=== PATIENT | male | born 1970 | race Caucasian/White ===

== ENCOUNTER 2020-09-24 12:59 | Outpatient (CLI) | payer OTHER, SELFPAY ==
--- NOTE | 2020-09-24 13:12 | XRR_ITS ---
PROCEDURE INFORMATION: Exam: XR Right Shoulder Exam date and time: 09/24/2020 1:23 PM Age: 50 years old Clinical indication: Pain; Shoulder; Bilateral; Additional info: R shoulder pain TECHNIQUE: Imaging protocol: XR Right shoulder. Views: 2 or more views. COMPARISON: No relevant prior studies available. FINDINGS: Bones/joints: Negative for acute bony abnormality. Soft tissues: Normal. XR/XR shoulder RT min 2V* [id number] IMPRESSION: No acute findings.
--- NOTE | 2020-09-24 13:12 | XRR_ITS ---
PROCEDURE INFORMATION: Exam: XR Left Shoulder Exam date and time: 09/24/2020 1:23 PM Age: 50 years old Clinical indication: Pain; Shoulder; Bilateral; Additional info: Left shoulder pain TECHNIQUE: Imaging protocol: XR Left shoulder. Views: 2 or more views. COMPARISON: No relevant prior studies available. FINDINGS: Bones/joints: Negative for acute bony abnormality. Soft tissues: Normal. XR/XR shoulder LT min 2V* [id number] IMPRESSION: No acute findings.
== END 2020-09-24 13:00 | disposition home or self-care (01) ==
PROVIDERS: PCP Nurse Practitioner Family; Visit Provider Nurse Practitioner Family
DX: M25.512 Pain in left shoulder (principal); M25.511 Pain in right shoulder
CPT/HCPCS: 73030

== ENCOUNTER → 2022-01-30 07:54 | Outpatient (BNVA) | payer OTHER, SELFPAY | PROVIDERS: PCP Nurse Practitioner Family; Referring Provider Family Medicine; Visit Provider Student in an Organized Health Care Education/Training Program | DX: M79.641 Pain in right hand (principal) | CPT/HCPCS: 73130 ==

== ENCOUNTER → 2023-02-05 09:39 | Outpatient (BNVA) | payer OTHER, SELFPAY | PROVIDERS: PCP Nurse Practitioner Family; Visit Provider Student in an Organized Health Care Education/Training Program | DX: M65.331 Trigger finger, right middle finger | CPT/HCPCS: 73130 ==

== ENCOUNTER 2023-02-18 08:16 | Day surgery (SDC) | payer OTHER, SELFPAY ==
[2023-02-17 12:02] VITALS: BMI 32.5
[2023-02-18 08:31] VITALS: BP 150/94; PULSE 57; RESP 18; TEMP 36.3; O2SAT 96; BMI 32.5
[2023-02-18] MEDS: sodium chloride 0.9% 1,000 ML 30 ML IV (08:49)
--- NOTE | 2023-02-18 08:57 | W.PM.OPSUD ---
Surgery/Procedure H&P Update DATE OF PROCEDURE: February 18, 2023 DATE H&P PERFORMED: 02/05/23 CHANGES TO PREVIOUS DOCUMENTATION: None. No change in HPI visit from 02/05/2023. Patient has a right middle finger trigger is failed conservative treatment elects proceed with surgical intervention. Understands risk benefits complication alternatives surgery elects to proceed all questions answered. PREOP DIAGNOSIS: Right middle finger trigger PRIMARY INDICATION FOR PROCEDURE: Right middle finger trigger PLANNED PROCEDURE: Operation Date: 02/18/23 10:10 Proposed Procedures p RIGHT MIDDLE TRIGGER FINGER RELEASE [id number],M65.21(Not Applicable) - Rashad Brand DO
[2023-02-18] MEDS: acetaminophen 1,000 MG/100 ML PIGGYBACK 400 MG IV (08:58)
[2023-02-18] MEDS: ketorolac 30 mg/mL INJ IVP (08:59)
--- NOTE | 2023-02-18 09:13 | ANES.PREANE2 ---
Pre-Anesthetic Assessment Height/Weight: Height 1.91 m Weight 117.934 kg Temp Pulse Resp BP Pulse Ox O2 Del Method 97.4 F L 57 L 18 150/94 96 Room Air 02/18/23 08:31 02/18/23 08:31 02/18/23 08:31 02/18/23 08:31 02/18/23 08:31 02/18/23 08:31 Preop Diagnosis: Right middle finger trigger Operation Date: 02/18/23 10:10 Proposed Procedures p RIGHT MIDDLE TRIGGER FINGER RELEASE [id number],M65.21(Not Applicable) - Rashad Brand DO Familial anesthetic complications: Gas and belching after an ankle surgery Was Beta Charlie taken within 24 hours: N/A Was Clonidine taken within 24 hours: N/A Last intake: Intake Last Liquid Date 02/18/23 Last Liquid Time 06:00 Last Solid Date 02/17/23 Last Solid Time 21:00 Social No alcohol and No tobacco Exam alert, oriented x 3, clear to auscultation bilaterally and regular rate & rhythm Airway Mallampati: Class III Dentition: other (bridge) CV/HEM Hypertension Anesthetic Plan ASA status: 2 Anesthesia: MAC Risk of > 500 ml blood loss (7ml/kg in children): No Medications/Allergies Home Medications Medication Instructions Recorded Confirmed Last Taken Type bupropion HCl 100 mg tablet 100 mg PO DAILY 01/30/22 02/17/23 02/18/23 History gabapentin 100 mg capsule 300 mg PO BID 01/30/22 02/17/23 02/18/23 History nebivolol 10 mg tablet (Bystolic) 10 mg PO DAILY 01/30/22 02/17/23 02/18/23 History testosterone cypionate 200 mg/mL 200 mg SUBCUT 02/17/23 02/18/23 History intramuscular oil ondansetron 4 mg disintegrating 4 mg PO Q8H PRN nausea and 02/18/23 Unknown Rx tablet vomiting 3 days #9 tabs tramadol 50 mg tablet 50 mg PO Q6H PRN pain #20 tabs 02/18/23 Unknown Rx Allergies Allergy/AdvReac Type Severity Reaction Status Date / Time penicillin G Allergy unknown Verified 02/05/23 09:33 Current Medications Generic Name Dose Route Start Last Admin Trade Name Freq PRN Reason Stop Dose Admin Sodium Chloride 1,000 mls @ 30 mls/hr 02/18/23 08:30 02/18/23 08:49 Sodium Chloride 0.9% IV 02/19/23 08:29 30 mls/hr .Q24H SAFIA Administration PFSH Anesthesia Medical History (Updated 02/17/23 @ 12:08 by Danette Chisholm RN) Bilateral carpal tunnel syndrome Trigger finger, right middle finger Trigger middle finger of left hand Trigger thumb of right hand Social History (Updated 02/05/23 @ 09:34 by Adalgisa Barber LPN) Smoking and tobacco status: former smoker Alcohol intake: current Alcohol intake frequency: holidays/special occasions only Data Anesthesia Cardiac Studies: No Data to Display
[2023-02-18] MEDS: ceFAZolin 2,000 MG in sodium chloride 0.9% (plus) 50 ML 100 MG IV (09:27)
[2023-02-18] MEDS: BUPivacaine 0.5% INJ 10 mL INJECTION (09:54)
[2023-02-18] MEDS: ROPivacaine 0.5% SDV 30 mL 150 MG INJECTION (09:54)
--- NOTE | 2023-02-18 10:04 | PM.OP2 ---
Brief Operative Note Date of procedure: 02/18/23 Pre-op diagnosis: Right middle finger trigger Post-op diagnosis: same (With extensive flexor tendon tenosynovitis ) Procedure Done: Right middle finger trigger release Right middle finger flexor tendon extensive tenosynovectomy/tenolysis Surgeon: Rashad Brand Estimated blood loss (mL): 2 Complications: None Post-op Plan: Patient taken to PACU in stable condition recovering well pain controlled. Will receive appropriate discharge instructions as well as pain medication postoperatively. Condition: stable Disposition: same day Coding Level of Care Code Acute Code for Rose Blackwood
--- NOTE | 2023-02-18 10:06 | PM.PACU ---
PACU note Narrative: Patient taken to PACU in stable condition recovering well pain controlled. Patient receive appropriate discharge directions as well as pain medication postoperatively. Dressings on in place the right hand hands warm well-perfused brisk capillary refill less than 2 seconds patient able to wiggle fingers. Decree sensation to middle finger secondary to local anesthesia. Exam: awake Disposition: discharged
--- NOTE | 2023-02-18 10:07 | PM.OP ---
Operative Report Date of procedure: February 18, 2023 Surgeon: Rashad Brand DO Procedure: Post-op diagnosis: Same Procedure done: Right middle finger?trigger?release Right middle finger flexor tendon Tenosynovectomy/tenolysis Surgeon: Rashad Brand DO Estimated blood loss: 2cc Tourniquet time 11mins Complications: None Condition: stable Disposition: same day Brief History: Patient's been seen and worked up in the outpatient setting and findings consistent with preoperative diagnosis of right middle finger?trigger.? He is failed conservative treatment.? Continues to have mechanical locking and catching.? Severe pain as well.? We talked about treatment options nonoperative versus operative intervention.? ?Patient understands the risk benefits complication alternatives of surgical nonsurgical treatment options.? Understanding his risks with surgery he elects proceed with surgical intervention.? Consent obtained in the office.? Here today to proceed with surgical intervention.? All questions answered. Procedure: Patient was seen and evaluated in the preoperative holding area.? Consent was reviewed and signed with patient.? Seen evaluated by Anesthesia Department.? Once cleared for surgery was brought back to the operative suite.? Kept On [facility] and in supine position. Patient's right arm was then placed to the armboard.? A nonsterile tourniquet applied to the right upper arm.? Patient's right upper extremity was then prepped and draped in standard orthopedic fashion.? Final timeout performed.? Patient received appropriate preoperative antibiotics. Esmarch tourniquet was used exsanguinate the right upper extremity tourniquet insufflated to 250 mmHg. Under sterile aseptic technique local digital block was performed to the right middle finger.? Once appropriately anesthetized a standard oblique incision was made centering over the A1 jose following patient's flexor crease.? Sharp scalpel incision was made only through skin and then switched to Littler dissection scissors and spread longitudinally directly over the flexor tendon sheath.? I then mobilized both radially and ulnarly and Kasdan retractors were used and placed by my real estate legal assistant to protect neurovascular bundle.? Next I visualized the A1 jose and this was incised with a scalpel.? I then switched to dissection scissors and released the A1 jose both proximally as well as distally to its entirety.? Significant tendon sheath fluid was noted consistent with inflammation.? Patient had extensive tenosynovitis throughout the entire tendon sheath with significant fraying of tendon no complete tear noted. I then utilized dissection scissors and pickups to perform an extensive Tenosynovectomy of the FDS and FDP tendons. At this point I utilized a rag nail and pulled the tendons FDS and FDP out of the incision and no?triggering was noted.? I then had anesthesia wake up the patient and patient was able to actively flex and extend and visualize his hand and try to make his finger trigger but there was no evidence of recurrent triggering. Patient had smooth range of motion of flexion extension and significant improvement in his finger range of motion.? This point thorough irrigation was performed.? Tourniquet deflated hemostasis satisfactory with bipolar.? I then subsequently closed the incision with interrupted nylon suture.? Xeroform 4 x 4's, Kerlix and an Corky wrap was applied for a bulky soft dressing.? Patient was then subsequently awakened from anesthesia and taken to PACU in stable condition tolerated procedure without issues. Disposition: Patient taken back in stable condition recovering well.? Patient will receive appropriate discharge instruction as well as pain medication postoperatively.? Patient to follow-up with me in the office in 2 weeks for repeat evaluation and incision check.? Patient understands that any questions or concerns and contact the office.? All questions answered.
[2023-02-18 10:16] VITALS: BP 123/77; PULSE 58; RESP 14; TEMP 36.1; O2SAT 94
[2023-02-18 10:20] VITALS: BP 134/79; PULSE 50; RESP 14; O2SAT 95
[2023-02-18 10:25] VITALS: BP 106/86; PULSE 50; RESP 14; TEMP 36.2; O2SAT 96
[2023-02-18 10:29] VITALS: BP 119/81; PULSE 51; RESP 16; TEMP 36.6; O2SAT 97
[2023-02-18 10:50] VITALS: BP 126/92; PULSE 56; RESP 16; TEMP 36.6; O2SAT 97
--- NOTE | 2023-02-18 11:00 | ANE.PACU2 ---
Inpatient post-anesthesia follow up: Airway intact: Yes Vital signs: Temperature 97.8 F Pulse Rate 56 Respiratory Rate 16 Blood Pressure 126/92 Pulse Oximetry 97 Oxygen Delivery Me thod Room Air Oxygen Flow Rate Fraction of Inspir ed Oxygen Hydration adequate: Yes Nausea and vomiting: No Pain level: 1 Mental status: Baseline
== END 2023-02-18 11:01 | disposition home or self-care (01) ==
PROVIDERS: PCP Family Medicine; Visit Provider Student in an Organized Health Care Education/Training Program
PROC: (CPT 26055; principal; 2023-02-18 10:00)
DX: M65.331 Trigger finger, right middle finger (principal); M65.841 Other synovitis and tenosynovitis, right hand; I10 Essential (primary) hypertension; Z87.891 Personal history of nicotine dependence
CPT/HCPCS: 26055; 26145; J0131; J0690; J1885; J2704; J2795; J3010; J3490; J7030

== ENCOUNTER 2023-03-08 12:11 | Outpatient (RCR) | payer OTHER, SELFPAY | END 2023-03-13 23:59 | disposition home or self-care (01) | LOC: SOT 12:11 | PROVIDERS: PCP Student in an Organized Health Care Education/Training Program; Visit Provider Student in an Organized Health Care Education/Training Program | DX: M65.331 Trigger finger, right middle finger (principal) | CPT/HCPCS: 97110; 97165; 97530 ==

== ENCOUNTER 2023-03-11 09:28 | Observation (INO) | payer OTHER, SELFPAY ==
--- NOTE | 2023-03-11 09:39 | PM.HP ---
Providers/Chief Complaint Admitting Physician: Rashad Brand DO Primary Care Provider: Rashad Brand DO Chief Complaint: middle finger infection History of Present Illness Prateek Fong is a 52 year old male who underwent a right middle finger trigger release on 02/18/2023. Patient was followed up in our clinic and 03/04/2023 and had sutures removed at that point in time no signs of infection mild areas of wound dehiscence that would likely expected to granulate in a week later patient states he noted increasing warmth and pain with finger range of motion. He was started up on Keflex and sent to our OT hand therapy specialist to work on wound management as well as edema control. He has had persistent pain in drainage at incision site and states that does not seem to be improving he was started on Bactrim by his primary care provider and recommended for a follow-up he was seen in my office this morning on 03/11/2023. At this point in time he does not have tenderness along the flexor tendon sheath he does have mild swelling throughout the hand focal erythema and mild purulent drainage at the incision site he has mild discomfort with passive extension he is able to mildly flex and extend his finger. At this point in time concern for postoperative infection and its not responding to conservative treatment as result recommended direct admit. He will be admitted started on empiric IV antibiotics with hospitalist on board to help assist us in medical management. Obtain preoperative labs. And plan for n.p.o. at midnight with plan for OR tomorrow for I&D of right middle finger. Patient understands agrees with current plan. Questions answered. Patient denies any fevers chills chest pain shortness of breath nausea vomiting Review of Systems General: Reports: 10 or more systems reviewed and unremarkable except in HPI and below Medications/Allergies Home Medications Medication Instructions Recorded Confirmed Last Taken Type bupropion HCl 100 mg tablet 150 mg PO BEDTIME 01/30/22 03/11/23 03/11/23 08:00 History gabapentin 100 mg capsule 400 mg PO BID 01/30/22 03/11/23 03/11/23 08:00 History nebivolol 10 mg tablet (Bystolic) 10 mg PO DAILY 01/30/22 03/11/23 03/11/23 08:00 History testosterone cypionate 200 mg/mL 200 mg SUBCUT 02/17/23 03/11/23 02/18/23 History intramuscular oil tramadol 50 mg tablet 50 mg PO Q6H PRN pain #20 tabs 02/18/23 03/11/23 Unknown Rx melatonin 10 mg PO BEDTIME 03/11/23 03/11/23 03/10/23 22:00 History sulfamethoxazole 800 1 tab PO BID 03/11/23 03/11/23 03/11/23 01:00 History mg-trimethoprim 160 mg tablet Allergies Allergy/AdvReac Type Severity Reaction Status Date / Time No Known Allergies Allergy Unverified 03/11/23 08:27 PFSH Acute PFSH: Medical History (Updated 03/11/23 @ 17:58 by Rashad Brand DO) Bilateral carpal tunnel syndrome Trigger finger, right middle finger Trigger middle finger of left hand Trigger thumb of right hand Social History Smoking and tobacco status: former smoker Alcohol intake: current Alcohol intake frequency: holidays/special occasions only Physical Exam Narrative: Orthopedic examination: Examination of the right hand demonstrates postoperative incision has subtle dehiscence noted with mild mucopurulent drainage. Tenderness over the A1 jose no tenderness along the flexor tendon sheath he has mild swelling throughout the incision site and into the base of the middle finger patient is able to flex his fingers there is no evidence of deep hand abscess or tenderness over the carpal tunnel thenar eminence or hypothenar eminence. Decreased finger range of motion pain with passive extension. Fingertips warm well-perfused brisk cap refill less than 2 seconds. Data 03/11/23 09:55 03/11/23 09:55 A&P Assessment and plan (1) Postoperative infection: (2) Trigger finger, right middle finger: Plan N.p.o. at midnight Regular diet today Obtain labs CRP and ESR elevated, normal white count Internal medicine consulted for medical management assistance Volar splint applied with dry dressing Elevation in [place] sling Empiric IV antibiotics and Toradol Plan for OR tomorrow for right middle finger irrigation and debridement. Patient understands the ins and outs procedure risk benefits complication alternatives surgery through shared decision-making elects proceed with surgical intervention all questions answered. Attestations Medical Necessity Statement*: Right middle finger postoperative infection Coding Level of Care Code Acute Code for Chg Fwd Diagnoses Postoperative infection T81.40XA Trigger finger, right middle finger M65.331
[2023-03-11 10:24] LABS: Erythrocyte Sedimentation Rate 37 mm/hr (0-10)
[2023-03-11 10:26] LABS: C Reactive Protein 30.5 mg/L (0.0-4.9)
[2023-03-11] MEDS: piperacillin-tazobactam 3.375 GM in sodium chloride 0.9% (plus) 50 ML IV ×2 (10:39→18:10)
[2023-03-11] MEDS: sodium chloride 0.9% 1,000 ML 80 ML IV ×2 (10:39→22:45)
[2023-03-11] MEDS: vancomycin 1,000 MG in sodium chloride 0.9% 250 ML 250 MG IV ×2 (10:40→22:45)
[2023-03-11] MEDS: acetaminophen 500 mg Tablet 1000 MG PO ×2 (10:40→18:09)
[2023-03-11 10:57] VITALS: BP 140/88; PULSE 79; RESP 16; TEMP 36.7; O2SAT 98
[2023-03-11] MEDS: ketorolac 30 mg/mL INJ IVP (11:23)
--- NOTE | 2023-03-11 13:41 | PC.OT ---
OT EVALUATION ORDERS RECEIVED. PER DISCUSSION WITH PATIENT NO P.T. REQUIRED HE IS INDEPENDENT WITH ALL MOBILITY AND TRANSFERS. PATIENT REPORTS HE HAS ATTEMPTED TO PERFORM HAND EXERCISES SHOWN BY CHT BUT HIS HAND HAS BEEN TOO SWOLLEN. HE IS GIVEN ONE HANDED ADL TECHNIQUES HANDOUT. NO FURTHER SKILLED OT REQUIRED AT THIS TIME. WILL AWAIT NEW ORDERS IF NEEDED AFTER SURGERY TOMORROW.
[2023-03-11 14:04] LABS: Basophils # 0.1 10^3/uL (0.0-0.1); Basophils % 0.6 %; Eosinophils # 0.2 10^3/uL (0.0-0.8); Eosinophils % 1.9 %; Lymphocytes # 1.7 10^3/uL (0.8-4.8); Lymphocytes % 20.7 %; Mean Corpuscular HGB Conc 32.8 g/dL (30-55); Mean Corpuscular Hemoglobin 29.7 pg (27-33); Mean Corpuscular Volume 90.6 fl (82-101); Mean Platelet Volume 9.4 fL (7.4-10.4); Monocytes # 0.8 10^3/uL (0.2-0.9); Monocytes % 10.1 %; Neutrophils # 5.42 10^3/uL (1.8-7.7); Neutrophils % 65.5 %; Nucleated Red Blood Cells % 0 %; Platelet Count 300 10^3/cmm (157-399); Red Blood Count 5.52 10^6/uL (3.85-5.65); Red Cell Distribution Width 13.2 % (12.1-15.1); White Blood Count 8.28 10^3/uL (3.29-11.43)
[2023-03-11 14:25] LABS: Anion Gap 18.4 (5-19); Blood Urea Nitrogen 13 mg/dL (6-20); Calcium 9.6 mg/dL (8.5-10.5); Carbon Dioxide 23 mmol/L (22-29); Chloride 100 mmol/L (98-107); Glomerular Filtration Rate 52.8 mL/min (90-130); Glucose 125 mg/dL (65-115); Osmolality Calculated 286 mOsm/kg (285-295); Potassium 4.4 mmol/L (3.5-5.1); Sodium 137 mmol/L (136-145)
[2023-03-11 15:58] VITALS: BP 145/85; PULSE 58; RESP 17; O2SAT 92
[2023-03-11] MEDS: calcium carb-vit d 600mg/400unit 1 Tablet 1 EACH PO (18:09)
--- NOTE | 2023-03-11 18:18 | PM.CONSULT ---
Providers/Reason For Consult Consulting Physician/Specialty*: Internal Medicine Reason for Consult*: assist with antibiotics and medical care Requesting Physician: Dr. Brand Attending Physician: Rashad Brand DO Primary Care Provider: Rashad Brand DO History of Present Illness History of Present Illness Prateek Fong is a 52 year old male had tendon release for trigger finger on his right third digit exactly 3 weeks ago. When he postop 2 weeks the sutures were removed and some clear pus was released. Later patient experienced fever chills and sweats the incision was opening and slight material was draining. His fingers started to swell. He had difficulty getting into the office. Nelson was called in for the patient on Wednesday. However, the wound was becoming worse. He saw his primary care physician yesterday his antibiotic to Bactrim and performed a culture. It is reported by the patient that the swab tip went into the wound completely at that point patient was able to make phone calls and be seen first thing this morning. Dr. Brand saw him in his office and determined patient would need a wound washout and IV antibiotics for a couple of days. Review of Systems Const: Reports: fever(s), chills and diaphoresis Eyes: Denies: change in vision ENMT: Denies: throat pain or nasal congestion Card: Denies: chest pain or palpitations Resp: Denies: dyspnea or productive cough GI: Denies: abdominal pain, nausea, vomiting or change in stool character : Denies: difficulty urinating or dysuria Musc: Reports: other (finger and hand pain); Denies: back pain Skin/Breast: Denies: rash or lesions Neuro: Denies: headache(s) or dizziness Psych: Denies: anxiety or depression Nir/Lymph: Denies: easy bruising or easy bleeding Medications/Allergies Home Medications Medication Instructions Recorded Confirmed Last Taken Type bupropion HCl 100 mg tablet 150 mg PO BEDTIME 01/30/22 03/11/23 03/11/23 08:00 History gabapentin 100 mg capsule 400 mg PO BID 01/30/22 03/11/23 03/11/23 08:00 History nebivolol 10 mg tablet (Bystolic) 10 mg PO DAILY 01/30/22 03/11/23 03/11/23 08:00 History testosterone cypionate 200 mg/mL 200 mg SUBCUT 02/17/23 03/11/23 02/18/23 History intramuscular oil tramadol 50 mg tablet 50 mg PO Q6H PRN pain #20 tabs 02/18/23 03/11/23 Unknown Rx melatonin 10 mg PO BEDTIME 03/11/23 03/11/23 03/10/23 22:00 History sulfamethoxazole 800 1 tab PO BID 03/11/23 03/11/23 03/11/23 01:00 History mg-trimethoprim 160 mg tablet Allergies Allergy/AdvReac Type Severity Reaction Status Date / Time No Known Allergies Allergy Unverified 03/11/23 08:27 Current Medications Generic Name Dose Route Start Last Admin Trade Name Freq PRN Reason Stop Dose Admin Acetaminophen 1,000 mg 03/11/23 10:00 03/11/23 18:09 Acetaminophen 500 Mg Tablet PO 1,000 mg Q8H SAFIA Administration Calcium Carbonate 1 each 03/11/23 18:00 03/11/23 18:09 Calcium Carb-Vit D 600mg/400unit 1 Tablet PO 1 each BID SAFIA Administration Sodium Chloride 1,000 mls @ 80 mls/hr 03/11/23 09:45 03/11/23 10:39 Sodium Chloride 0.9% IV 80 mls/hr .[id number] SAFIA Administration Piperacillin Sod/Tazobactam 50 mls @ 12.5 mls/hr 03/11/23 10:00 03/11/23 18:10 Sod 3.375 gm/ Sodium Chloride IV 12.5 mls/hr Q8H SAFIA Administration Protocol Vancomycin HCl 1,000 mg/ 250 mls @ 250 mls/hr 03/11/23 11:00 03/11/23 12:08 Sodium Chloride IV Infused Q12H SAFIA Infusion Protocol Ketorolac Tromethamine 30 mg 03/11/23 09:31 03/11/23 11:23 Ketorolac 30 Mg/Ml Inj IVP 30 mg Q6H PRN Administration MODERATE PAIN PFSH Acute PFSH: Medical History Bilateral carpal tunnel syndrome Trigger finger, right middle finger Trigger middle finger of left hand Trigger thumb of right hand Social History (Updated 03/11/23 @ 18:32 by Jack Kaur DO) Smoking and tobacco status: current every day smoker smokeless tobacco Alcohol intake: current Alcohol intake frequency: holidays/special occasions only Vitals/I&O/Wt Last Vital Signs Temp 98.1 F 03/11/23 10:57 Pulse 58 L 03/11/23 15:58 Resp 17 03/11/23 15:58 BP 145/85 03/11/23 15:58 Pulse Ox 92 03/11/23 15:58 O2 Del Method Room Air 03/11/23 10:55 03/11/23 03/11/23 03/11/23 06:59 14:59 22:59 Intake Total 490 / 490 290 / 780 Output Total 900 / 900 Balance -410 / -410 290 / -120 Physical Exam Narrative: Patient is alert and oriented in no acute distress. His right arm is wrapped. The wrist and hand is in a brace. Neurologic: Alert and oriented x3 cranial nerves II through XII grossly intact nonfocal exam HEENT head is normocephalic atraumatic pupils equal round and reactive to light and accommodation extraocular muscles are intact mucous membranes are slightly erythematous moist. Neck is supple no JVD carotid bruits or lymphadenopathy Chest: Rises symmetrically with inspiration Heart: Regular rate and rhythm normal S1-S2 without murmur click gallop or rub Lungs: Clear to auscultation anteriorly without wheezes rales or rhonchi Abdomen: Obese soft nontender nondistended positive bowel sounds no hepatosplenomegaly Extremities: No clubbing cyanosis or edema in the lower extremities. Right upper extremity is bandaged by Dr. Brand for I will not examine. Data 03/11/23 09:55 03/11/23 09:55 A&P Assessment and plan (1) Elevated serum creatinine: No prior labs for comparison. Ordered pharmacy to dose as appropriate for vancomycin and Zosyn. Will follow with daily BMP. (2) Postoperative infection: (3) Trigger finger, right middle finger: (4) Depression: (5) Tobacco chew use: (6) Peripheral neuropathy: Consult Attestations Medical Necessity Statement: As per orthopedics. Coding Level of Care Code Acute Code for Chg Fwd Diagnoses Elevated serum creatinine R79.89 Postoperative infection T81.40XA Trigger finger, right middle finger M65.331 Depression F32.A Tobacco chew use Z72.0 Peripheral neuropathy G62.9
[2023-03-11 20:00] VITALS: BP 131/81; PULSE 66; RESP 18; TEMP 36.6; O2SAT 94
[2023-03-11] MEDS: LORazepam 1 mg Tablet PO (21:16)
[2023-03-12] VITALS (23 sets, daily range): BP systolic 117–164; BP diastolic 73–104; PULSE 50–72; RESP 15–24; TEMP 36.1–37.1; O2SAT 91–98; BMI 32.5
[2023-03-12] MEDS: acetaminophen 500 mg Tablet 1000 MG PO ×3 (02:51→18:16)
[2023-03-12] MEDS: piperacillin-tazobactam 3.375 GM in sodium chloride 0.9% (plus) 50 ML IV ×3 (02:51→18:16)
[2023-03-12 04:49] LABS: Basophils % 0.7 %; Eosinophils # 0.2 10^3/uL (0.0-0.8); Eosinophils % 2.9 %; Hematocrit 45.9 % (37-53); Lymphocytes # 1.2 10^3/uL (0.8-4.8); Lymphocytes % 21.8 %; Mean Corpuscular HGB Conc 33.1 g/dL (30-55); Mean Corpuscular Hemoglobin 29.7 pg (27-33); Mean Corpuscular Volume 89.6 fl (82-101); Monocytes # 0.5 10^3/uL (0.2-0.9); Monocytes % 9.9 %; Neutrophils # 3.46 10^3/uL (1.8-7.7); Neutrophils % 63.6 %; Nucleated Red Blood Cells % 0 %; Platelet Count 217 10^3/cmm (157-399); Red Blood Count 5.12 10^6/uL (3.85-5.65); White Blood Count 5.45 10^3/uL (3.29-11.43)
[2023-03-12 05:08] LABS: Anion Gap 14.4 (5-19); Blood Urea Nitrogen 14 mg/dL (6-20); Calcium 9.1 mg/dL (8.5-10.5); Carbon Dioxide 24 mmol/L (22-29); Chloride 105 mmol/L (98-107); Glomerular Filtration Rate 52.8 mL/min (90-130); Glucose 87 mg/dL (65-115); Osmolality Calculated 288 mOsm/kg (285-295); Potassium 4.4 mmol/L (3.5-5.1); Sodium 139 mmol/L (136-145)
[2023-03-12] MEDS: sodium chloride 0.9% 1,000 ML 30 ML IV (06:25)
--- NOTE | 2023-03-12 06:29 | P.ANESASSM_ITS ---
Pre-Anesthetic Assessment Height/Weight: Height 1.91 m Weight 117.934 kg Temp Pulse Resp BP Pulse Ox O2 Del Method 97 F L 68 18 145/100 96 Room Air 03/12/23 06:13 03/12/23 06:13 03/12/23 06:13 03/12/23 06:13 03/12/23 06:13 03/12/23 06:13 Preop Diagnosis: Middle finger infection Operation Date: 03/12/23 07:00 Proposed Procedures p Right middle finger Irrigation and debridement(Right) - Rashad Brand, DO Was Beta Charlie taken within 24 hours: Yes Was Clonidine taken within 24 hours: N/A Last intake: Intake Last Liquid Date 03/10/23 Last Liquid Time 23:00 Last Solid Date 03/10/23 Last Solid Time 19:00 Social Tobacco Chews Exam alert, oriented x 3, clear to auscultation bilaterally and regular rate & rhythm Airway Submandibular: within normal limits Cervical ROM: within normal limits Mallampati: Class II History/ROS No significant history except as noted and No significant complaints CV/HEM Hypertension Neuropsych Depression Anesthetic Plan ASA status: 2 Anesthesia: General Risk of > 500 ml blood loss (7ml/kg in children): No Medications/Allergies Home Medications Medication Instructions Recorded Confirmed Last Taken Type bupropion HCl 100 mg tablet 150 mg PO BEDTIME 01/30/22 03/11/23 03/11/23 08:00 History gabapentin 100 mg capsule 400 mg PO BID 01/30/22 03/11/23 03/11/23 08:00 History nebivolol 10 mg tablet (Bystolic) 10 mg PO DAILY 01/30/22 03/11/23 03/11/23 08:00 History testosterone cypionate 200 mg/mL 200 mg SUBCUT 02/17/23 03/11/23 02/18/23 Histor y intramuscular oil tramadol 50 mg tablet 50 mg PO Q6H PRN pain #20 tabs 02/18/23 03/11/23 Unknown Rx melatonin 10 mg PO BEDTIME 03/11/23 03/11/23 03/10/23 22:00 History sulfamethoxazole 800 1 tab PO BID 03/11/23 03/11/23 03/11/23 01:00 History mg-trimethoprim 160 mg tablet Allergies Allergy/AdvReac Type Severity Reaction Status Date / Time No Known Allergies Allergy Unverified 03/11/23 08:27 Current Medications Generic Name Dose Route Start Last Admin Trade Name Darnellq PRN Reason Stop Dose Admin Acetaminophen 1,000 mg 03/11/23 10:00 03/12/23 02:51 Acetaminophen 500 Mg Tablet PO 1,000 mg Q8H SAFIA Administration Calcium Carbonate 1 each 03/11/23 18:00 03/11/23 18:09 Calcium Carb-Vit D 600mg/400unit 1 Tablet PO 1 each BID SAFIA Administration Sodium Chloride 1,000 mls @ 80 mls/hr 03/11/23 09:45 03/11/23 22:45 Sodium Chloride 0.9% IV 80 mls/hr .[id number] SAFIA Administration Piperacillin Sod/Tazobactam 50 mls @ 12.5 mls/hr 03/11/23 10:00 03/12/23 02:51 Sod 3.375 gm/ Sodium Chloride IV 12.5 mls/hr Q8H SAFIA Administration Protocol Vancomycin HCl 1,000 mg/ 250 mls @ 250 mls/hr 03/11/23 11:00 03/12/23 00:27 Sodium Chloride IV Infused Q12H SAFIA Infusion Protocol Sodium Chloride 1,000 mls @ 30 mls/hr 03/12/23 06:15 03/12/23 06:25 Sodium Chloride 0.9% IV 03/13/23 06:14 30 mls/hr .Q24H SFAIA Administration Ketorolac Tromethamine 30 mg 03/11/23 09:31 03/11/23 11:23 Ketorolac 30 Mg/Ml Inj IVP 30 mg Q6H PRN Administration MODERATE PAIN Lorazepam 1 mg 03/11/23 21:00 03/11/23 21:16 Lorazepam 1 Mg Tablet PO 1 mg BEDTIME SAFIA Administration PFSH Anesthesia Medical History Bilateral carpal tunnel syndrome Trigger finger, right middle finger Trigger middle finger of left hand Trigger thumb of right hand Social History (Updated 03/11/23 @ 18:32 by Jack Kaur DO) Smoking and tobacco status: current every day smoker smokeless tobacco Alcohol intake: current Alcohol intake frequency: holidays/special occasions only Data Anesthesia 03/12/23 04:04 03/12/23 04:04 Short CBC 03/11/23 03/12/23 Range/Units 09:55 04:04 WBC 8.28 5.45 (3.29-11.43) 10^3/uL Hgb 16.40 15.20 (11.27-16.99) g/dL Hct 50.0 45.9 (37-53) % MCV 90.6 89.6 (82-101) fl Plt Count 300 217 (157-399) 10^3/cmm Neut % (Auto) 65.5 63.6 % Neut # (Auto) 5.42 3.46 (1.8-7.7) 10^3/uL BMP 03/11/23 03/12/23 09:55 04:04 Sodium 137 139 Potassium 4.4 4.4 Chloride 100 105 Carbon Dioxide 23 24 BUN 13 14 Creatinine 1.4 H 1.4 H Glucose 125 H 87 Calcium 9.6 9.1 Coags 03/11/23 03/11/23 09:55 09:55 ESR 37 H C-Reactive Protein 30.5 H Cardiac Studies: No Data to Display
--- NOTE | 2023-03-12 06:51 | P.HPUD_ITS ---
Surgery/Procedure H&P Update DATE OF PROCEDURE: March 12, 2023 DATE H&P PERFORMED: 03/11/23 H&P UPDATE INFORMATION: I have reviewed H&P completed within last 30 days, I have examined patient prior to procedure and No changes to prior documentation CHANGES TO PREVIOUS DOCUMENTATION: Patient's failed conservative treatment at this point in time through shared decision making elects to proceed with right middle finger irrigation and de bridement. We will get him to return to the floor and continue with empiric antibiotics at this time. PREOP DIAGNOSIS: Middle finger infection PRIMARY INDICATION FOR PROCEDURE: Right middle finger infection PLANNED PROCEDURE: Operation Date: 03/12/23 07:00 Proposed Procedures p Right middle finger Irrigation and debridement(Right) - Rashad Brand DO
[2023-03-12] MEDS: BUPivacaine 0.5% INJ 30 mL INJECTION (07:34)
[2023-03-12] MEDS: lidocaine 2% INJ 20 mL INJECTION (07:34)
[2023-03-12] MEDS: vancomycin 1,000 MG SDV 1000 MG IRRIGATION (08:16)
--- NOTE | 2023-03-12 08:45 | P.OP_ITS ---
Operative Report Date of procedure: March 12, 2023 Pre-op diagnosis: Right middle finger postoperative infection Post-op diagnosis: Same Post-op findings: See operative report narrative Procedure done: Right middle finger irrigation and debridement Right middle finger FDS and FDP tendons tenolysis and tenosynovectomy Specimens removed/disposition: Cultures taken of flexor tendon fluid underneath postoperative incision Surgeon: Rashad Brand DO Geographic Information Systems Director: Masood Brand PA-C: PA was necessary for assistance in this case to help with the retraction and protection of neurovascular structures as well as to assist in wound closure Estimated blood loss: 10 mL 50 minutes IV fluids: See anesthesia record Complications: None Findings: See operative report narrative Condition: stable Disposition: floor Brief History: Patient is a 52-year-old gentleman who had failed conservative treatment for a right middle finger trigger. He had had a cortisone injection and had responded well to this but ultimately his trigger returned as well as increasing his loss of motion given his triggering and inflammation. At that point in time through shared decision making elected proceed with a right middle finger trigger release this was underwent on 02/18/2023. He had an uncomplicated procedure was noted of having significant tenosynovitis throughout the initial procedure. Otherwise no complicated course. He was seen 2 weeks postoperatively at that point in time sutures were removed he did have a mild area of wound dehiscence but recommended local care and antibiotic ointment and if any issues to follow- up. He within the following week started to have some redness and increased pain as well as some drainage at the incision site he was started on antibiotics seen by her hand therapist started to work on wound care management. He did not respond to oral antibiotics and was subsequently seen by me at 3 weeks out from his procedure. At that point in time on my examination he had redness over the A1 jose with mild mucopurulent drainage. Given it failed to respond to conservative treatment my plan at that point in time was for admission directly from the office for starting on IV antibiotics elevation in Hutchison sling as well as starting on Toradol. He had early signs of possible flexor tenosynovitis with pain with passive extension and tenderness over the A1 jose he did not have complete fusiform swelling or tenderness along the full flexor tendon sheath and only slight flexed posturing. At this point time in order to keep prevent this from worsening given failure response of oral antibiotics recommended surgical intervention we had him admitted to the hospital and plan for surgical intervention the following day understands the ins and outs procedure the risk benefits complication alternatives of surgery through shared decision make elects proceed with right middle finger irrigation debridement all questions answered. Procedure: Patient seen evaluated in the preoperative holding area. Consent was reviewed and signed with patient. Correct extremity was then marked. Patient was seen evaluated by anesthesia once cleared for surgery was taken back to the operative suite. Patient is already been on empiric antibiotics. He was kept on the hospital gurney and armboard applied to the right upper arm underwent anesthesia per the anesthesia part once properly anesthetized a nonsterile tourniquet was applied to the right upper arm. The right upper extremity was then prepped and draped in standard orthopedic fashion. Final timeout performed. Patient received appropriate antibiotics on the floor and not due for another at this point in time. Right upper extremity was then elevated and tourniquet was insufflated to 250 mmHg. Patient's previous incision was then extended it was an oblique fashion over the A1 jose. I made a sharp scalpel incision extending this and ellipsing out all necrotic skin edges. I then used and switched to Littler dissection scissors it was noted to having patient had significant fatty necrosis underneath the skin edges there was no alek purulence appreciated. Patient had an excessive amount of synovial fluid once I had full visualization directly over top the tendon sheaths I then cultured this synovial fluid and fluid within the incision site of aerobic and anaerobic and this was sent for appropriate microbiology. At this point in time my certified ophthalmic surgical assistant placed Kasdan retractors to protect my neurovascular bundles and at this point in time perform an extensive debridement of all devitalized tissue of skin and subcutaneous fat fascia as well as tendon. The remanent of the A1 jose was excised to its entirety as well as all the tenosynovitis throughout the tendon. The tendon had a thick film of Bakari synovitis throughout as well as adhesions noted. I utilized dissection scissors as well as scalpel to perform an appropriate debridement and excision of all of the devitalized tissue the tendons were noticed to be intact. Once I had a excellent debridement of the incision site I then thoroughly irrigated this to its entirety. Next given the association with the flexor tendon sheath I worried about communication into the entire flexor tendon sheath and as result I elected for a 2 incision irrigation debridement. I then switched to new instrumentations and subsequently made a Justine incision over the A5 jose. Sharp scalpel incision was made I then made a slit in the A5 jose and placed an angiocatheter within the flexor tendon sheath and irrigated the flexor tendon sheath thoroughly with a significant amount of no rmal saline irrigation. I then did make a small amount of vancomycin powder mixed in with irrigation fluid and then irrigated the flexor tendon sheath once more. At this point in time thoroughly irrigation and satisfactory debridement was made. The right middle finger was irrigated and total of 4 cm x 2 cm x 1 cm and this was debrided once again of skin and subcutaneous tissue fat fascia and tendon. All healthy tissue was left within the wound bed I was satisfied with my debridement. At this point time given the extensiveness of the debridement as well as to piper helper in any excess drainage I then elected to place a Melfa drain just over the A1 jose incision. Tourniquet was deflated hemostasis was satisfactory final irrigation was then performed I then closed the distal incision with interrupted nylon suture just to the skin only I then loosely approximated the a 1 incision with the Melfa drains in place just to piper helper in no reaccumulation. Patient was then appropriately dressed in a bulky soft dressing with Xeroform 4 x 4's ABD Curlex soft roll and a volar Corky wrap. Patient was then awake from anesthesia and taken to PACU in stable condition Disposition: Patient taken to PACU in stable condition recovering well. Patient will return to floor postoperatively continue with IV antibiotics for the next 24 hours. Plan will be for dressing takedown tomorrow with removal likely a Chuck drain redress and likely discharge tomorrow. was updated postoperatively. We will have him maintain the splint at this point in time we will get him started aggressively with our therapist in the clinic next week to work on working out his edema and swelling. Patient understands agrees with current plan. Questions answered.
--- NOTE | 2023-03-12 08:48 | W.PM.BPON ---
Date of procedure: [03/12/23] Surgeon name: [Dr. Sunday PHIPPS] Donor Recruitment Manager(s) name(s): [Masood Brand PA-C] Procedure(s) performed: [Right Middle finger irrigation and debridement, Tenolysis and tenosynovectomy] Description of findings: [Right Middle finger infection] Estimated blood loss: [10 ml] Specimen(s) removed: [none] Post-operative diagnosis: [Right Middle Finger infection]
--- NOTE | 2023-03-12 08:52 | PM.PACU ---
PACU note Narrative: Patient is a 52-year-old male that just underwent a right middle finger I&D. Patient transferred to PACU in stable condition. Pain is well controlled. Splint and Dressing on hand is dry and in place. Patient's fingers are warm and well-perfused. normal cap refill under 2 seconds. Unable to perform further assessment due to patient residual anesthesia. Exam: somnolent, arousable Disposition: discharged
[2023-03-12] MEDS: fentaNYL 50 mcg/mL INJ 2mL IVP (09:12)
[2023-03-12] MEDS: oxyCODONE 5 mg IR Tab/Cap PO (10:03)
[2023-03-12] MEDS: ondansetron 2 mg/ML SDV 2 mL 4 MG IVP ×2 (10:03→11:26)
--- NOTE | 2023-03-12 10:05 | PC.CHAP ---
Pastoral Care Encounter/Spiritual Assessment Type of Contact [] Declined .net developer visit [] Patient/Family/Request visit [] Outpatient visit [] Follow-up visit [] Physician referral [] Code/Alert [x] Routine visit [] Staff referral [] Actively dying [] Patient sleeping [] Family support [] [] Out of room [] Palliative care [] [] Receiving care in room [] Pre-surgical visit [] Trauma [] Long length of stay [] ICU visit [] Other: Relational/Emotional Strength [x] Patient feels connected with others/family/visitors/staff [] Distress [] Loneliness/isolation [] Abandonment Spirituality of Patient [x] Person of [place]ourdes [] Attends Scientologist of their [place] [x] Believes in Prayer [] Reads Bible or Pentecostal materials [] There are Spiritual issues to be addressed Gettering Operator Interventions [x] Prayer [] Active listening [] Non-anxious presence [x] Spiritual/emotional support [] Crisis/trauma care [] Spiritual counseling [] Bereavement support [] Provided bereavement packet [] Provided Bible/devotional materials [] Provided toy/stuffed animal, coloring book to patient or family member [] Provided Communion [] Anointing/Hanna [] Salvation [x] Completed spiritual assessment [] Other: Impact on Illness or Injury [] Angry [] Fearful [] Anxious [] Often cries [] Exhaustion [] Unable to work [] Unable to attend protestant [] Unable to walk/stand [] Unable to read [] Unable to drive [] Unable to eat/drink [] Unable to sleep [] Unable to be with family [] Patient intubated [] Other: Summary Time spent with patient 5 min
--- NOTE | 2023-03-12 11:01 | ANE.PACU2 ---
Inpatient post-anesthesia follow up: Airway intact: Yes Vital signs: Temperature 97.5 F Pulse Rate 54 Respiratory Rate 16 Blood Pressure 164/104 Pulse Oximetry 97 Oxygen Delivery Me thod Nasal Cannula Oxygen Flow Rate 2 Fraction of Inspir ed Oxygen Hydration adequate: Yes Nausea and vomiting: No Pain level: 2 Mental status: Baseline
[2023-03-12] MEDS: metoprolol tartrate 50 mg Tablet PO ×2 (11:25→21:40)
[2023-03-12] MEDS: ketorolac 30 mg/mL INJ IVP ×2 (11:32→22:03)
[2023-03-12] MEDS: vancomycin 1,000 MG in sodium chloride 0.9% 250 ML 250 MG IV (13:36)
--- NOTE | 2023-03-12 17:09 | P.PN_ITS ---
Subjective Subjective: Patient reports significant pain and nausea immediately postoperatively. I saw him around 12:00 noon and he was doing much better. His heart arm is alert stated connected to the IV pole he is having no complaints. Vitals/I&O/Wt Last Vital Signs Temp 97.5 F L 03/12/23 12:30 Pulse 54 L 03/12/23 12:30 Resp 16 03/12/23 12:30 BP 118/75 03/12/23 12:30 Pulse Ox 94 03/12/23 12:30 O2 Del Method Nasal Cannula 03/12/23 12:30 O2 Flow Rate 2 03/12/23 09:40 03/12/23 03/12/23 03/12/23 06:59 14:59 22:59 Intake Total 250 / 2048 1350 / 1350 50 / 1400 Output Total 950 / 2000 660 / 660 Balance -700 / 48 690 / 690 50 / 740 Weight last 48 hrs Weight 117.934 kg Physical Exam Narrative: Middle-age male well-nourished well-hydrated no acute distress Heart: Regular normal S1-S2 no murmurs Lungs: Diminished throughout no wheezes rales or rhonchi Abdomen. Obese soft nontender nondistended positive bowel sounds Extremities right upper extremity elevated above heart, lower extremities no edema Data 03/12/23 04:04 03/12/23 04:04 Micro: Microbiology 03/12/23 07:30 Gram Stain - Final Hand - #1 A&P Assessment and plan (1) Elevated serum creatinine: Stable creatinine at 1.4 Ordered pharmacy to dose as appropriate for vancomycin and Zosyn. Will follow with daily BMP. (2) Postoperative infection: Continue vancomycin and Zosyn. Status post irrigation and debridement. (3) Trigger finger, right middle finger: (4) Depression: (5) Tobacco chew use: He was counseled to quit yesterday particularly immediately prior to surgery. He tells me today he has not chewed since before midnight last night (6) Peripheral neuropathy: Attestations Medical Necessity Statement*: Right middle finger postoperative infection Coding Level of Care Code Acute Code for [facility] Fwd Diagnoses Elevated serum creatinine R79.89 Postoperative infection T81.40XA Trigger finger, right middle finger M65.331 Depression F32.A Tobacco chew use Z72.0 Peripheral neuropathy G62.9
[2023-03-12] MEDS: gabapentin 400 mg Capsule PO (18:16)
[2023-03-12] MEDS: calcium carb-vit d 600mg/400unit 1 Tablet 1 EACH PO (18:16)
[2023-03-12] MEDS: sodium chloride 0.9% 1,000 ML 80 ML IV (19:40)
[2023-03-12] MEDS: LORazepam 1 mg Tablet PO (21:40)
[2023-03-12] MEDS: ondansetron 2 mg/ML SDV 2 mL 8 MG IVP (23:43)
[2023-03-13] MEDS: piperacillin-tazobactam 3.375 GM in sodium chloride 0.9% (plus) 50 ML IV (01:04)
[2023-03-13] MEDS: vancomycin 1,000 MG in sodium chloride 0.9% 250 ML 250 MG IV (01:05)
[2023-03-13 03:37] VITALS: BP 139/80; PULSE 54; RESP 15; TEMP 36.4; O2SAT 93
[2023-03-13 04:51] LABS: Basophils % 0.5 %; Eosinophils # 0.2 10^3/uL (0.0-0.8); Eosinophils % 2.9 %; Hematocrit 42.5 % (37-53); Lymphocytes # 1.3 10^3/uL (0.8-4.8); Lymphocytes % 20.3 %; Mean Corpuscular HGB Conc 33.4 g/dL (30-55); Mean Corpuscular Hemoglobin 29.9 pg (27-33); Mean Corpuscular Volume 89.5 fl (82-101); Mean Platelet Volume 8.9 fL (7.4-10.4); Monocytes # 0.5 10^3/uL (0.2-0.9); Monocytes % 8.2 %; Neutrophils % 67.5 %; Nucleated Red Blood Cells % 0 %; Platelet Count 218 10^3/cmm (157-399); Red Blood Count 4.75 10^6/uL (3.85-5.65); Red Cell Distribution Width 13.1 % (12.1-15.1); White Blood Count 6.22 10^3/uL (3.29-11.43)
[2023-03-13 05:09] LABS: Anion Gap 12.1 (5-19); Blood Urea Nitrogen 17 mg/dL (6-20); Calcium 8.6 mg/dL (8.5-10.5); Carbon Dioxide 25 mmol/L (22-29); Chloride 108 mmol/L (98-107); Glomerular Filtration Rate 52.8 mL/min (90-130); Glucose 104 mg/dL (65-115); Osmolality Calculated 294 mOsm/kg (285-295); Potassium 4.1 mmol/L (3.5-5.1); Sodium 141 mmol/L (136-145)
[2023-03-13 08:00] VITALS: BP 155/85; PULSE 62; RESP 16; TEMP 36.6; O2SAT 96
--- NOTE | 2023-03-13 08:12 | P.DS_ITS ---
Discharge Providers Date of Admission: 03/11/23 09:28 Date of Discharge: March 13, 2023 Attending Provider at Admission: Rashad Brand DO Attending Provider at Discharge: Rashad Brand DO Consults: Hospitalist-Dr Kaur Primary Care Provider: Rashad Brand DO Diagnoses at Discharge Discharge Diagnosis (1) Elevated serum creatinine: Status: Acute (2) Postoperative infection: Status: Acute (3) Trigger finger, right middle finger: Status: Resolved (4) Depression: Status: Chronic (5) Tobacco chew use: Status: Chronic (6) Peripheral neuropathy: Status: Chronic Reason for Visit Reason for Visit: middle finger infection Brief History: Postop trigger finger release infection that failed to respond to conservative outpt PO abx Hospital Course Hospital Course pt had right middle finger trigger release and unfortunated had complicatino of postop incision site infection. this failed conservative outpt treatement with PO abx and hand therapy. as a result to prevent worsening infection, pt was admitted from the office, IM was consulted for medical managment. pt was placed on IV abx, volar splint and snell sling. pt made NPO, was taken to the OR the next day for RIght middle finger I&D which was uncomplicated and appropriate extensive debridement performed. pt continued on IV abx postop, followed cultures, maintain splint and NWB to operative hand. pt was determined on POD 1 pt had appropriate improvement and was stable for DC home with close followup by ortho and IM. pt understands and agrees with current plan. pt will receive appropriate posotp abx and pain control and dc instructions pt to [place] early this week. pt to contact with any questions. Physical Exam Narrative: Right hand right hand dressing taken down. valeriano drain pulled , improvement in pain on examination. still mild decrease sensation secondary to the local block, incision is well approximated, no expressible drainage or any abscess accumulation. normal postop finger swelling. finger tip warm and well perfused, able to tolerate gentle rom. no erythema, no TTP over carpal or thenar or hypothenar space. Discharge Data Studies Completed and Pending Pending at discharge Category Date Time Status Abscess Culture and Gram Stain Routine Lab 03/12/23 07:30 Results Anaerobic Culture Routine Lab 03/12/23 07:30 Received Basic Metabolic Panel AM LABS Lab 03/14/23 04:00 Ordered Complete Blood Count w/Auto AM LABS Lab 03/14/23 04:00 Ordered Laboratory Results WBC 6.22 10^3/uL (3.29-11.43) 03/13/23 04:19 RBC 4.75 10^6/uL (3.85-5.65) 03/13/23 04:19 Hgb 14.20 g/dL (11.27-16.99) 03/13/23 04:19 Hct 42.5 % (37-53) 03/13/23 04:19 MCV 89.5 fl (82-101) 03/13/23 04:19 MCH 29.9 pg (27-33) 03/13/23 04:19 MCHC 33.4 g/dL (30-55) 03/13/23 04:19 RDW 13.1 % (12.1-15.1) 03/13/23 04:19 Plt Count 218 10^3/cmm (157-399) 03/13/23 04:19 MPV 8.9 fL (7.4-10.4) 03/13/23 04:19 Neut % (Auto) 67.5 % 03/13/23 04:19 Lymph % (Auto) 20.3 % 03/13/23 04:19 [place] % (Auto) 8.2 % 03/13/23 04:19 Eos % (Auto) 2.9 % 03/13/23 04:19 Baso % (Auto) 0.5 % 03/13/23 04:19 Neut # (Auto) 4.20 10^3/uL (1.8-7.7) 03/13/23 04:19 Lymph # (Auto) 1.3 10^3/uL (0.8-4.8) 03/13/23 04:19 [place] # (Auto) 0.5 10^3/uL (0.2-0.9) 03/13/23 04:19 Eos # (Auto) 0.2 10^3/uL (0.0-0.8) 03/13/23 04:19 Baso # (Auto) 0.0 10^3/uL (0.0-0.1) 03/13/23 04:19 Nucleated RBC % (auto) 0 % 03/13/23 04:19 Nucleated RBCs # 0.0 /100WBC 03/13/23 04:19 ESR 37 mm/hr (0-10) H 03/11/23 09:55 Sodium 141 mmol/L (136-145) 03/13/23 04:19 Potassium 4.1 mmol/L (3.5-5.1) 03/13/23 04:19 Chloride 108 mmol/L (98-107) H 03/13/23 04:19 Carbon Dioxide 25 mmol/L (22-29) 03/13/23 04:19 Anion Gap 12.1 (5-19) 03/13/23 04:19 BUN 17 mg/dL (6-20) 03/13/23 04:19 Creatinine 1.4 mg/dL (0.7-1.2) H 03/13/23 04:19 GFR Calculation 52.8 mL/min (90-130) L 03/13/23 04:19 Glucose 104 mg/dL (65-115) 03/13/23 04:19 Calculated Osmolality 294 mOsm/kg (285-295) 03/13/23 04:19 Calcium 8.6 mg/dL (8.5-10.5) 03/13/23 04:19 C-Reactive Protein 30.5 mg/L (0.0-4.9) H 03/11/23 09:55 Vancomycin Trough 9.0 ug/mL (10-15) L 03/12/23 23:47 Vitals Last Vital Signs Temp 98 F 03/13/23 08:00 Pulse 62 03/13/23 08:00 Resp 16 03/13/23 08:00 BP 155/85 03/13/23 08:00 Pulse Ox 96 03/13/23 08:00 O2 Del Method Room Air 03/13/23 03:37 O2 Flow Rate 2 03/12/23 09:40 Discharge Plan Discharge Patient Disposition: Home Condition: Stable Prescriptions: New levofloxacin 500 mg tablet 500 mg PO DAILY 5 Days Qty: 5 0RF hydrocodone-acetaminophen 5-325 mg tablet 1 tab PO Q6H PRN (Reason: pain) 7 Days Qty: 28 0RF Continued nebivolol [Bystolic] 10 mg tablet 10 mg PO DAILY sulfamethoxazole-trimethoprim 800-160 mg tablet 1 tab PO BID bupropion HCl 150 mg tablet sustained-release 12 hr 150 mg PO QPM gabapentin 400 mg capsule 400 mg PO TID melatonin 10 mg Tablet 10 mg PO BEDTIME testosterone cypionate 200 mg/mL oil 200 mg SUBCUT Q14D tramadol 50 mg tablet 50 mg PO Q6H PRN (Reason: pain) Qty: 20 0RF No Action sulfamethoxazole-trimethoprim [Bactrim DS] 800-160 mg tablet 1 tab PO BID Qty: 20 0RF naproxen 375 mg tablet,delayed release (DR/EC) 375 mg PO BID PRN (Reason: pain and inflammation) 7 Days Qty: 14 0RF Discharge Orders: Discharge Order (Routine); Ordered 03/13/23 Ordered By: Rashad Brand Referrals: Rafi Cai MD [Referring] - (Please call Wednesday to schedule an appointment with Dr. Cai.) Rashad Brand DO [Primary Care Provider] - (We have notified your physician's clinic of the need for a follow-up appointment to be scheduled. If you have not heard from them within the next 2 business days, please call them directly. You may also reach out to our urban renewal manager at [phone] and she can assist you.) Discharge Diet: Advance as tolerated Discharge Activity: Resume usual activity and Limit activity as instructed Patient Instructions: Hydrocodone/Acetaminophen (By mouth), Ondansetron (By mouth), Levofloxacin (By mouth) (Levaquin, Levaquin Leva-nabeel), Opioid Safety Activity Restrictions/Additional Instructions: Hand discharge instructions: Patient should leave dressing on in place until follow-up Take antibiotic as prescribed (resume Bactrim prescribed by primary, start Levaquin new prescribed antibiotic) Take pain medication as prescribed May supplement with [id number] anti-inflammatories Do not take more than 3000 mg of Tylenol daily as one of the pain medications as Tylenol already and it Take antinausea medication as needed Elevation and ice as needed for pain and swelling Contact the office for any questions or concerns Plan on following up with Dr. Brand in the office on Wednesday Discharge Attestations Time Spent in Discharge Care*: greater than 30 min Quality Metrics Clinical Quality Measures [ No reported AMI, CVA or VTE this stay] Coding Level of Care Code Acute Code for Chg Fwd Diagnoses Elevated serum creatinine R79.89 Postoperative infection T81.40XA Trigger finger, right middle finger M65.331 Depression F32.A Tobacco chew use Z72.0 Peripheral neuropathy G62.9 Time Spent (min) 35
--- NOTE | 2023-03-13 08:13 | PM.PN ---
Subjective Subjective: Pt seen and examined this AM. Pt recovering well. pain controlled. on IV abx, pain improved from preop. dressing changed and clinical improvement. Plan for DC later today with followup early next week and starting on OT hand therapy. Pt ready for dc today. reviewed cultures with hospitalist and planning on DC on bactrim and levofloxacin. Vitals/I&O/Wt Last Vital Signs Temp 98 F 03/13/23 08:00 Pulse 62 03/13/23 08:00 Resp 16 03/13/23 08:00 BP 155/85 03/13/23 08:00 Pulse Ox 96 03/13/23 08:00 O2 Del Method Room Air 03/13/23 03:37 O2 Flow Rate 2 03/12/23 09:40 03/12/23 03/13/23 03/13/23 22:59 06:59 14:59 Intake Total 440 / 1790 300 / 2090 Output Total 1350 / 2010 Balance 440 / 1130 -1050 / 80 Weight last 48 hrs Weight 260 lb Physical Exam Narrative: Right hand right hand dressing taken down. valeriano drain pulled , improvement in pain on examination. still mild decrease sensation secondary to the local block, incision is well approximated, no expressible drainage or any abscess accumulation. normal postop finger swelling. finger tip warm and well perfused, able to tolerate gentle rom. no erythema, no TTP over carpal or thenar or hypothenar space. Data 03/13/23 04:19 03/13/23 04:19 Micro: Microbiology 03/12/23 07:30 Gram Stain - Final Hand - #1 A&P Assessment and plan (1) Postoperative infection: Plan Clinically improving, IV abx elevation [facility]ott salter Toradol IM on board and appreciate medical managment follow culutres pain control dressing changed DC later today with early followup next week continue to NWB to operative extremeity Attestations Medical Necessity Statement*: ongoing care for postop trigger finger release infection Coding Level of Care Code Acute Code for Chg Fwd Diagnoses Postoperative infection T81.40XA
[2023-03-13] MEDS: ketorolac 30 mg/mL INJ IVP (08:39)
[2023-03-13] MEDS: multivitamin therapeutic Tablet 1 TAB PO (08:54)
[2023-03-13] MEDS: buPROPion SR (12 HR) 150 mg Tablet PO (08:54)
[2023-03-13] MEDS: gabapentin 400 mg Capsule PO (08:54)
[2023-03-13] MEDS: calcium carb-vit d 600mg/400unit 1 Tablet 1 EACH PO (08:54)
[2023-03-13] MEDS: metoprolol tartrate 50 mg Tablet PO (08:56)
[2023-03-13 09:48] VITALS: BP 155/85; PULSE 62; RESP 16; TEMP 36.6; O2SAT 96
== END 2023-03-13 09:52 | disposition home or self-care (01) ==
PROVIDERS: Admitting Provider Student in an Organized Health Care Education/Training Program; PCP Student in an Organized Health Care Education/Training Program; Visit Provider Student in an Organized Health Care Education/Training Program
PROC: (CPT 26145; principal; 2023-03-12 07:00)
DX: T81.49XA Infection following a procedure, other surgical site, initial encounter (principal); R79.89 Other specified abnormal findings of blood chemistry; M65.331 Trigger finger, right middle finger; F32.A Depression, unspecified; G62.9 Polyneuropathy, unspecified; F17.220 Nicotine dependence, chewing tobacco, uncomplicated; I10 Essential (primary) hypertension
CPT/HCPCS: 26145; 36415; 80048; 80202; 85025; 85651; 86140; 87070; 87075; 87205; G0378; G0379; J1885; J2405; J2543; J2704; J3010; J3370; J3490; J7030; J7050

== ENCOUNTER 2023-03-14 06:00 | Outpatient (RCR) | payer OTHER, SELFPAY | END 2023-04-13 23:59 | disposition home or self-care (01) | LOC: SOT 06:00 | PROVIDERS: PCP Student in an Organized Health Care Education/Training Program; Visit Provider Student in an Organized Health Care Education/Training Program | DX: M65.331 Trigger finger, right middle finger (principal) | CPT/HCPCS: 97110; 97140; G0283 ==

== ENCOUNTER 2023-04-14 06:00 | Outpatient (RCR) | payer OTHER, SELFPAY | END 2023-05-13 23:59 | disposition home or self-care (01) | LOC: SOT 06:00 | PROVIDERS: PCP Family Medicine; Visit Provider Student in an Organized Health Care Education/Training Program | DX: Z47.89 Encounter for other orthopedic aftercare (principal) | CPT/HCPCS: 97022; 97110; 97140; G0283 ==

== ENCOUNTER 2023-12-21 06:35 | Day surgery (SDC) | payer OTHER, SELFPAY ==
--- NOTE | 2023-12-21 04:05 | W.PM.OPSFHP ---
Same Day Surgery H&P Indication for Procedure/HPI DATE OF PROCEDURE: December 21, 2023 CHIEF COMPLAINT/INDICATIONFOR SURGICAL PROCEDURE: need for screening colonoscopy PREOP DIAGNOSIS: need for screening colonoscopy PLANNED PROCEDURE: Operation Date: 12/21/23 07:45 Proposed Procedures p Colonoscopy 57386, G0121, Z12.11(Not Applicable) - Gage Perea MD Medications/Allergies* Home Medications Medication Instructions Recorded Confirmed Type nebivolol 10 mg tablet (Bystolic) 10 mg PO DAILY 01/30/22 12/15/23 History testosterone cypionate 200 mg/mL 200 mg SUBCUT Q14D 02/17/23 12/15/23 History intramuscular oil bupropion HCl 150 mg tablet,12 hr 150 mg PO QAM 03/12/23 12/15/23 History sustained-release (Wellbutrin SR) gabapentin 400 mg capsule 400 mg PO BID 03/12/23 12/15/23 History melatonin 10 mg tablet 10 mg PO BEDTIME 03/12/23 12/15/23 History Allergies/Adverse Reactions Allergy/AdvReac Type Severity Reaction Status Date / Time No Known Allergies Allergy Verified 12/15/23 08:34 Pertinent History/Comorbid Conditions* Medical History (Updated 03/20/23 @ 18:21 by Rashad Brand DO) Bilateral carpal tunnel syndrome Trigger finger, right middle finger Trigger thumb of right hand Trigger middle finger of left hand Social History Smoking and tobacco/nicotine status: current every day tobacco/nicotine user smokeless tobacco Alcohol intake: current Alcohol intake frequency: holidays/special occasions only Pertinent Exam Findings alert, oriented x 3, clear to auscultation bilaterally and regular rate & rhythm Recommendations Surgery/Procedure today Coding Level of Care Code Acute Code for Chg [place]
[2023-12-21 06:47] VITALS: BP 139/89; PULSE 63; RESP 18; TEMP 36.3; O2SAT 97; BMI 33.1
[2023-12-21] MEDS: sodium chloride 0.9% 1,000 ML 30 ML IV (06:56)
--- NOTE | 2023-12-21 07:14 | ANES.PREANE2 ---
Pre-Anesthetic Assessment Height/Weight: Height 1.91 m Weight 120.202 kg Temp Pulse Resp BP Pulse Ox O2 Del Method 97.3 F L 63 18 139/89 97 Room Air 12/21/23 06:47 12/21/23 06:47 12/21/23 06:47 12/21/23 06:47 12/21/23 06:47 12/21/23 06:47 Preop Diagnosis: need for screening colonoscopy Operation Date: 12/21/23 07:45 Proposed Procedures p Colonoscopy 94772, G0121, Z12.11(Not Applicable) - Gage Perea MD Familial anesthetic complications: None Was Beta Charlie taken within 24 hours: N/A Was Clonidine taken within 24 hours: N/A Last intake: Intake Last Liquid Date 12/20/23 Last Liquid Time 19:00 Last Solid Date 12/19/23 Last Solid Time 19:00 Social Tobacco and No alcohol Exam alert, oriented x 3, clear to auscultation bilaterally and regular rate & rhythm Airway Mallampati: Class III Dentition: full CV/HEM Hypertension Anesthetic Plan ASA status: 2 Anesthesia: MAC Risk of > 500 ml blood loss (7ml/kg in children): No Medications/Allergies Home Medications Medication Instructions Recorded Confirmed Last Taken Type nebivolol 10 mg tablet (Bystolic) 10 mg PO DAILY 01/30/22 12/21/23 12/21/23 History testosterone cypionate 200 mg/mL 200 mg SUBCUT Q14D 02/17/23 12/15/23 12/06/23 History intramuscular oil bupropion HCl 150 mg tablet,12 hr 150 mg PO QAM 03/12/23 12/15/23 12/20/23 History sustained-release (Wellbutrin SR) gabapentin 400 mg capsule 400 mg PO BID 03/12/23 12/15/23 12/20/23 History melatonin 10 mg tablet 10 mg PO BEDTIME 03/12/23 12/15/23 12/20/23 History Allergies Allergy/AdvReac Type Severity Reaction Status Date / Time No Known Allergies Allergy Verified 12/15/23 08:34 Current Medications Generic Name Dose Route Start Last Admin Trade Name Freq PRN Reason Stop Dose Admin Sodium Chloride 1,000 mls @ 30 mls/hr 12/21/23 06:45 12/21/23 06:56 Sodium Chloride 0.9% IV 30 mls/hr .Q24H SAFIA Administration PFSH Anesthesia Medical History (Updated 11/17/23 @ 14:30 by BALDOMERO La) Bilateral carpal tunnel syndrome Trigger finger, right middle finger Trigger thumb of right hand Trigger middle finger of left hand Social History Smoking and tobacco/nicotine status: current every day tobacco/nicotine user smokeless tobacco Alcohol intake: current Alcohol intake frequency: holidays/special occasions only Data Anesthesia Cardiac Studies: No Data to Display
[2023-12-21 08:16] VITALS: BP 117/79; PULSE 71; RESP 12; TEMP 36.3; O2SAT 92
[2023-12-21 08:24] VITALS: BP 112/84; PULSE 64; RESP 16; O2SAT 93
[2023-12-21 08:33] VITALS: BP 122/86; PULSE 65; RESP 16; O2SAT 93
--- NOTE | 2023-12-21 08:45 | ANE.PACU2 ---
Inpatient post-anesthesia follow up: Airway intact: Yes Vital signs: Temperature 97.3 F Pulse Rate 65 Respiratory Rate 16 Blood Pressure 122/86 Pulse Oximetry 93 Oxygen Delivery Me thod Room Air Oxygen Flow Rate 4 Fraction of Inspir ed Oxygen Hydration adequate: Yes Nausea and vomiting: No Pain level: 1 Mental status: Baseline
== END 2023-12-21 08:48 | disposition home or self-care (01) ==
PROVIDERS: PCP Family Medicine; Visit Provider Surgery
PROC: 0DJD8ZZ Inspection of Lower Intestinal Tract, Via Natural or Artificial Opening Endoscopic (ICD-10-PCS; CPT 45378; principal; 2023-12-21 07:45)
DX: Z12.11 Encounter for screening for malignant neoplasm of colon (principal); K52.89 Other specified noninfective gastroenteritis and colitis; F17.290 Nicotine dependence, other tobacco product, uncomplicated; I10 Essential (primary) hypertension
CPT/HCPCS: 45380; 88305; J2704; J7030

== ENCOUNTER 2024-01-31 21:46 | Emergency (ER) | payer OTHER, SELFPAY ==
[2024-01-31 21:48] VITALS: BP 170/89; PULSE 74; RESP 16; TEMP 36.7; O2SAT 97; BMI 33.1
--- NOTE | 2024-01-31 22:01 | XRR_ITS ---
PROCEDURE INFORMATION: Exam: XR Left Shoulder Exam date and time: 01/31/2024 10:05 PM Age: 53 years old Clinical indication: Injury or trauma; Fall; Blunt trauma (contusions or hematomas); Shoulder; Left; Additional info: Fall, clavicular pain TECHNIQUE: Imaging protocol: Radiologic exam of the left shoulder. Views: 2 or more views. COMPARISON: CR XR shoulder LT min 2V* [id number] 09/24/2020 1:28 PM FINDINGS: Bones/joints: No acute fracture or dislocation. Soft tissues: Unremarkable. XR/XR shoulder LT min 2V* [id number] IMPRESSION: No acute fracture or dislocation.
--- NOTE | 2024-01-31 22:02 | W.ED.EXTPRO ---
HPI - Extremity Problem General: Chief complaint: Extremity Injury, Upper Stated complaint: Right arm injury Time Seen by Provider: 01/31/24 21:56 Source: patient Mode of arrival: ambulatory Limitations: no limitations History of Present Illness: Patient is a 53-year-old male presented to the emergency department complaining of left shoulder injury after being bucked off a horse about 2 hours prior to arrival. Patient states he landed directly on his left shoulder, is having pain to the left clavicle area and having muscle spasms to the left bicep. No previous fractures or dislocations of that left shoulder. Has not taken anything for pain. States he has difficulty raising his arm overhead. No other symptoms reported at this time. MD Complaint: joint pain Onset (ago): hour(s) Pain Consistency: constant Location: left and upper extremity Exacerbating factors: range of motion Associated symptoms: Deny chest pain, fever(s) or rash Context: other (Bucked off of a horse, fell onto left shoulder) Related Data Home Medications Medication Instructions Recorded Confirmed nebivolol 10 mg tablet (Bystolic) 10 mg PO DAILY 01/30/22 01/04/24 testosterone cypionate 200 mg/mL 200 mg SUBCUT Q14D 02/17/23 01/04/24 intramuscular oil bupropion HCl 150 mg tablet,12 hr 150 mg PO QAM 03/12/23 01/04/24 sustained-release (Wellbutrin SR) gabapentin 400 mg capsule 400 mg PO BID 03/12/23 01/04/24 melatonin 10 mg tablet 10 mg PO BEDTIME 03/12/23 01/04/24 Previous Rx's Medication Instructions Recorded methocarbamol 750 mg tablet 750 mg PO Q8H 5 days #15 tabs 01/31/24 Allergies Allergy/AdvReac Type Severity Reaction Status Date / Time No Known Allergies Allergy Verified 01/04/24 13:32 Review of Systems General: Reports: 10 or more systems reviewed and unremarkable except in HPI and below Const: Denies: fever(s) or chills Card: Denies: chest pain Resp: Denies: dyspnea or productive cough GI: Denies: abdominal pain, nausea, vomiting or diarrhea : Denies: flank pain Musc: Reports: joint pain (Left shoulder) and limited range of motion; Denies: neck pain, back pain, extremity pain, extremity swelling, joint swelling, joint redness, joint warmth or muscle weakness Skin/Breast: Denies: rash Neuro: Denies: headache(s), numbness in extremities or weakness in extremities PFSH ED PFSH: Medical History Bilateral carpal tunnel syndrome Trigger finger, right middle finger Trigger thumb of right hand Trigger middle finger of left hand Social History Smoking and tobacco/nicotine status: current every day tobacco/nicotine user smokeless tobacco Alcohol intake: current Alcohol intake frequency: holidays/special occasions only Physical Exam Const: COMMON NORMALS: no acute distress, patient oriented x3, no limitations, healthy appearing, alert and well nourished HENMT: COMMON NORMALS: normocephalic and atraumatic HEAD & SCALP: normocephalic and atraumatic Neck/C-Spine: COMMON NORMALS: full ROM, supple and no meningeal signs Resp: COMMON NORMALS: normal respiratory effort, No use of accessory muscles and clear to auscultation bilaterally AUSCULTATION: clear to auscultation bilaterally Cardio: COMMON NORMALS: regular rate and regular rhythm RATE: regular rate RHYTHM: regular rhythm Extremity: COMMON NORMALS: capillary refill normal, no joint enlargement and no clubbing, cyanosis or edema NARRATIVE EXTREMITY EXAM: Tender to palpation of the left clavicle. Does not appear any drooping of the left arm compared to the right. Left shoulder joint is nontender to palpation. Cannot raise the arm above the head, due to pain and limited range of motion. Distal neurovascular exam intact. Good industrial hygenist strength. Neuro: COMMON NORMALS: patient oriented x3, moves all extremities, no focal motor deficits and no sensory deficits noted SENSORIUM/ORIENTATION: Yes alert MENINGEAL SIGNS: Yes no meningeal signs Skin: COMMON NORMALS: no rashes or lesions noted GENERAL SKIN EXAM: no rashes or lesions noted Course Vital Signs: Vital signs: Vital Signs Temperature 98.1 F 01/31/24 21:48 Pulse Rate 70 01/31/24 22:24 Respiratory Rate 16 01/31/24 22:24 Blood Pressure 144/102 01/31/24 22:24 Pulse Oximetry 97 01/31/24 22:24 Oxygen Delivery Me thod Room Air 01/31/24 21:48 MDM - Extremity (Nontraumatic) Medical Decision Making Patient seen after injuring left shoulder after falling off a horse. No obvious deformity on exam, did have quite a bit of limitation in range of motion. X-ray did not demonstrate any acute fracture or dislocation of the shoulder joint or clavicle. He does report improvement after receiving Toradol and Norflex, and I will prescribe muscle relaxers to take at home. He will be given a work note for the next couple of days to limit his activity, however he is encouraged to gently start increasing range of motion as he can tolerate it. For any further pain he is instructed to follow-up with primary care for an MRI. He will be discharged home at this time. Lab Data Radiology Impressions Shoulder X-Ray 01/31/24 22:01 IMPRESSION: No acute fracture or dislocation. All radiology interpretation(s) finalized by discharge Discharge Plan Discharge Patient Disposition: Home Clinical Impression: Sprain of left shoulder Qualifiers: Encounter type: initial encounter Shoulder sprain type: unspecified sprain Qualified Code(s): S43.402A - Unspecified sprain of left shoulder joint, initial encounter Condition: Stable Prescriptions: New methocarbamol 750 mg tablet 750 mg PO Q8H 5 Days Qty: 15 0RF No Action nebivolol [Bystolic] 10 mg tablet 10 mg PO DAILY bupropion HCl [Wellbutrin SR] 150 mg tablet sustained-release 12 hr 150 mg PO QAM gabapentin 400 mg capsule 400 mg PO BID melatonin 10 mg Tablet 10 mg PO BEDTIME testosterone cypionate 200 mg/mL oil 200 mg SUBCUT Q14D Discharge Orders: Discharge ED (Routine); Ordered 01/31/24 Ordered By: Gage Chung Referrals: Rafi Cai MD [Primary Care Provider] - Discharge Diet: Usual diet Discharge Activity: Increase activity as tolerated Patient Instructions: Shoulder Sprain (ED) Activity Restrictions/Additional Instructions: Muscle relaxers. Take Tylenol and ibuprofen at home. Gentle range of motion exercises as tolerated. If you continue to have pain, please follow-up with primary care for further evaluation. 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
[2024-01-31] MEDS: orphenadrine 30 mg/mL Inj 2 mL 60 MG IM (22:15)
[2024-01-31] MEDS: ketorolac 60 mg/2 mL INJ IM (22:15)
[2024-01-31 22:24] VITALS: BP 144/102; PULSE 70; RESP 16; O2SAT 97
== END 2024-02-01 | disposition home or self-care (01) ==
PROVIDERS: Emergency Provider Physician Assistant; PCP Family Medicine
DX: S43.402A Unspecified sprain of left shoulder joint, initial encounter (principal); F17.220 Nicotine dependence, chewing tobacco, uncomplicated; V80.010A Animal-rider injured by fall from or being thrown from horse in noncollision accident, initial encounter
CPT/HCPCS: 73030; 96372; 99284; J1885; J2360